=== PATIENT | female | born 1985 | race Caucasian/White ===

== ENCOUNTER 2016-07-15 21:11 | Emergency (ER) | payer SELFPAY ==
[~2016-07-15] VITALS: Ht 154.9 cm; Wt 72.6 kg
[2016-07-15 21:24] VITALS: BP_SYST 121
[2016-07-15] MEDS ORDERED: BACITRACIN 1 GM OINT TP ONE (21:45)
[2016-07-15] MEDS ORDERED: LIDOCAINE/EPI 1% 1:100000 20 ML VIAL IJ ONE (21:45)
[2016-07-15 22:11] VITALS: BP_SYST 120
== END 2016-07-15 22:11 | disposition home or self-care (01) ==
LOC: SED 21:11
DX: L02.414 Cutaneous abscess of left upper limb (principal)
CPT/HCPCS: 87070-TC; 87075-TC; 99284

== ENCOUNTER 2019-01-27 15:31 | Emergency (ER) | payer MEDICAID ==
[~2019-01-27] VITALS: Ht 157.5 cm; Wt 81.6 kg
[2019-01-27 15:50] VITALS: BP_SYST 115
--- NOTE | 2019-01-27 16:08 | NUR ---
Patient to ER bed 02 for evaluation. Side rails up. Report given to Juan Carlos MARSHALL.
--- NOTE | 2019-01-27 16:15 | NUR ---
MD Jackson at bedside.
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
--- NOTE | 2019-01-27 16:55 | NUR ---
pt taking to Radiology.
--- NOTE | 2019-01-27 17:59 | NUR ---
pt is back from [place]> awaiting report. pt remains stable and in no dtress.
[2019-01-27 18:41] VITALS: BP_SYST 113
--- NOTE | 2019-01-27 18:41 | NUR ---
Patient given written and verbal discharge instructions and verbalizes understanding. ER MD Jackson discussed with patient the results and treatment provided. Patient in stable condition. ID arm band removed. No Rx given. Patient educated on pain management and to follow up with PMD. Pain Scale 0. Opportunity for questions provided and answered. Medication side effect fact sheet provided.
== END 2019-01-27 18:41 | disposition home or self-care (01) ==
LOC: SED 15:31
DX: S86.912A Strain of unspecified muscle(s) and tendon(s) at lower leg level, left leg, initial encounter (principal); Z90.49 Acquired absence of other specified parts of digestive tract; V89.2XXA Person injured in unspecified motor-vehicle accident, traffic, initial encounter; Y93.89 Activity, other specified; Y92.89 Other specified places as the place of occurrence of the external cause; Y99.8 Other external cause status
CPT/HCPCS: 73564; 73590-TC; 93971; 99284

== ENCOUNTER 2019-11-26 17:37 | Emergency (ER) | payer MEDICAID ==
[~2019-11-26] VITALS: Ht 154.9 cm; Wt 87.1 kg
[2019-11-26 17:44] VITALS: BP_SYST 122
--- NOTE | 2019-11-26 17:46 | NUR ---
Patient to ER bed 04 to gown for evaluation. Side rails up.
--- NOTE | 2019-11-26 17:49 | NUR ---
CAME IN WITH C/O RIGHT ARM PAIN RADIATING FROM RIGHT SHOULDER TO ELBOW AND THEN A PAIN FROM THE ELBOW TO THE WRIST. 11/11 PAIN. STATES THIS HAPPENED TUESDAY WHEN SHE WAS DOING HER DAUGHTER'S HAIR WHEN THE PAIN CAME ON SUDDENLY. AAOX4, V/S STABLE. WILL MONITORY FOR SAFETY
--- NOTE | 2019-11-26 17:55 | NUR ---
DR. MCCONNELL AT THE BEDSIDE
[2019-11-26] MEDS ORDERED: KETOROLAC TROMETHAMINE 60 MG/2 ML VIAL IM ONE (18:00)
--- NOTE | 2019-11-26 18:05 | NUR ---
URINE PREGANCY TEST DONE. RESULTS CAME BACK POSITIVE. MD MADE AWARE. PT MADE AWARE AND NO FURTHER MEDICATIONS ORDERED. CURRENT ORDER FOR TORADOL CANCELLED.
[2019-11-26 18:14] VITALS: BP_SYST 122
--- NOTE | 2019-11-26 18:18 | NUR ---
Patient given written and verbal discharge instructions and verbalizes understanding. ER MD discussed with patient the results and treatment provided. Patient in stable condition. ID arm band removed.Patient educated on pain management and to follow up with PMD. Pain Scale 7/10. Opportunity for questions provided and answered. Medication side effect fact sheet provided.
== END 2019-11-26 18:18 | disposition home or self-care (01) ==
LOC: SED 17:37
DX: M79.601 Pain in right arm (principal)
CPT/HCPCS: 81025; 99282; J1885